=== PATIENT | female | born 1950 | race Caucasian/White ===

== ENCOUNTER 2016-11-05 18:22 | Emergency (ER) | payer BC ==
[~2016-11-05] VITALS: Ht 157.5 cm; Wt 127.6 kg
[~2016-11-05 18:22] MED LIST: CALCIUM PO; CATAPRES0.1 MG PO; CELEXA40 MG PO; COZAAR100 MG PO; Calan SR,Covera HS,I PO; Catapres PO; Cozaar PO; FUROSEMIDE20 MG PO; LEVOTHROID175 MCG PO; Lasix PO; Levothroid,Synthroid PO; MICRO-K10 ME1 PO; Micro-K,K-Tab,K-Dur, PO; NABUMETONE750 MG PO; VERAPAMIL HCL240 MG PO; celeXA PO
[2016-11-05 18:45] LABS: HEMATOCRIT 39.2 % (36.0-46.0); MCH 28.8 PG (29.0-34.0); MCHC 31.6 G/DL (30.0-36.0); MEAN PLAT.VOLUME 8.7 uM^3 (9.5-12.4); PLATELET COUNT 308 K/uL (156-360); RBC DIS.WIDTH-CV 14.3 % (11.8-14.6); RBC DIS.WIDTH-SD 46.5 % (39-53); RED BLOOD COUNT 4.31 M/uL (3.80-5.20); WHITE BLOOD COUNT 12.3 K/uL (4.1-10.2)
[2016-11-05 18:53] LABS: CHLORIDE 106 mEq/L (99-109); SODIUM 144 mEq/L (136-147)
[2016-11-05 18:55] LABS: GLUCOSE 132 mg/dL (70-99)
[2016-11-05 18:57] LABS: ANION GAP 12 MEQ/L (2-14)
[2016-11-05 18:59] LABS: GFR ESTIMATE (CALCULATED) > 59 mL/min/
[2016-11-05 19:00] LABS: UREA NITROGEN (BUN) 24 mg/dL (9-23)
[2016-11-05 19:06] LABS: TROP-I INTERPRETATION NEGATIVE; TROPONIN-I < 0.01 ng/mL (0.0-0.30)
[2016-11-05] MEDS ORDERED: LEVAQUIN750 MG PO (20:04)
[2016-11-05] MEDS ORDERED: PROVENTIL HFA6.7 GM IH (20:04)
[2016-11-05] MEDS ORDERED: PREDNISONE20 MG PO (20:04)
[2016-11-05 20:35] VITALS: BP 120/56
== END 2016-11-05 20:36 | disposition home or self-care (01) ==
LOC: EME 18:22
DX: J44.0 Chronic obstructive pulmonary disease with (acute) lower respiratory infection (principal); J20.9 Acute bronchitis, unspecified; J44.1 Chronic obstructive pulmonary disease with (acute) exacerbation; I10 Essential (primary) hypertension
CPT/HCPCS: 71020; 80048; 84484; 85027; 93005; 94640; 99281; 99284; J7512

== ENCOUNTER 2017-01-03 12:53 | Observation (INO) | payer BC ==
[~2017-01-03] VITALS: Ht 152.4 cm; Wt 130.1 kg
[~2017-01-03 12:53] MED LIST changes: +CITALOPRAM HBR40 MG PO; +CLONIDINE HCL0.1 MG PO; +KLOR-CON 1010 ME1 PO; +LEVAQUIN750 MG PO; +LEVOTHYROXINE175 MCG PO; +LOSARTAN POTAS100 MG PO; +PREDNISONE20 MG PO; +PROAIR HFA8.5 GM IH; +PROVENTIL HFA6.7 GM IH
[2017-01-03] MEDS ORDERED: FUROSEMIDE20 MG PO (13:51)
[2017-01-03 18:20] VITALS: BP 141/67
[2017-01-03 19:30] VITALS: BP 159/73
[2017-01-03 23:33] VITALS: BP 138/64
[2017-01-04 03:59] VITALS: BP 182/79
[2017-01-04 05:56] LABS: EOSINOPHIL (%) 7.4 % (0-5); EOSINOPHIL COUNT 0.7 K/uL (0-0.3); IMMATURE GRANULOCYTE (%) 0.4 % (0.0-0.7); INSTRUMENT ABS NEUTROPHIL CT 6.2 K/uL; LYMPHOCYTE COUNT 1.7 K/uL (1.0-2.8); MCH 28.3 PG (29.0-34.0); MCV 94.3 FL (83-99); MEAN PLAT.VOLUME 9.3 uM^3 (9.5-12.4); MONOCYTE (%) 7.6 % (3-12); MONOCYTE COUNT 0.7 K/uL (0-0.8); NEUTROPHIL (%) 66.5 % (45-76); NEUTROPHIL COUNT 6.2 K/uL (1.8-6.4); PLATELET COUNT 245 K/uL (156-360); RBC DIS.WIDTH-CV 14.5 % (11.8-14.6); RBC DIS.WIDTH-SD 50.3 % (39-53); RED BLOOD COUNT 4.03 M/uL (3.80-5.20); WHITE BLOOD COUNT 9.4 K/uL (4.1-10.2)
[2017-01-04 06:21] LABS: ANION GAP 9 MEQ/L (2-14); CHLORIDE 105 MEQ/L (99-109); GFR ESTIMATE (CALCULATED) > 59 mL/min/; GLUCOSE 128 mg/dL (70-99); SAMPLE HEMOLYSIS CHECK 0; SAMPLE ICTERIC CHECK 0; SAMPLE LIPEMIA CHECK 0; SODIUM 142 MEQ/L (136-147); UREA NITROGEN (BUN) 20 mg/dL (9-23)
[2017-01-04 07:50] VITALS: BP 165/72
[2017-01-04] MEDS ORDERED: ASPIR-LOW81 MG PO (09:59)
[2017-01-04] MEDS ORDERED: CLOPIDOGREL75 MG PO (09:59)
[2017-01-04] MEDS ORDERED: ATORVASTATIN CA40 MG PO (09:59)
== END 2017-01-04 13:59 | disposition home or self-care (01) ==
LOC: CATH 12:53 → 4EAST 15:52 → 2SOUTH 15:52 → 4EAST 17:43
PROVIDERS: Internal Medicine Cardiovascular Disease
PROC: B2111ZZ Fluoroscopy of Multiple Coronary Arteries using Low Osmolar Contrast (ICD-10-PCS; principal; 2017-01-03)
PROC: B2151ZZ Fluoroscopy of Left Heart using Low Osmolar Contrast (ICD-10-PCS; principal; 2017-01-03)
PROC: 4A023N7 Measurement of Cardiac Sampling and Pressure, Left Heart, Percutaneous Approach (ICD-10-PCS; principal; 2017-01-03)
PROC: 3E033PZ Introduction of Platelet Inhibitor into Peripheral Vein, Percutaneous Approach (ICD-10-PCS; principal; 2017-01-03)
PROC: 027034Z Dilation of Coronary Artery, One Artery with Drug-eluting Intraluminal Device, Percutaneous Approach (ICD-10-PCS; principal; 2017-01-03)
DX: I25.10 Atherosclerotic heart disease of native coronary artery without angina pectoris (principal); I10 Essential (primary) hypertension; E78.5 Hyperlipidemia, unspecified; E66.01 Morbid (severe) obesity due to excess calories; Z68.43 Body mass index [BMI] 50.0-59.9, adult
CPT/HCPCS: 36415; 80048; 85025; 85610; 85730; 93005; C1725; C1769; C1874; C1887; G0378; J1644; J2250; J3010; J3246

== ENCOUNTER 2017-01-30 07:01 | Emergency (ER) | payer BC ==
[~2017-01-30] VITALS: Ht 152.4 cm; Wt 128.0 kg
[~2017-01-30 07:01] MED LIST changes: +ASPIR-LOW81 MG PO; +ATORVASTATIN CA40 MG PO; +CLOPIDOGREL75 MG PO
[2017-01-30] MEDS ORDERED: PERCOCET 5/31 TABLET PO (09:10)
[2017-01-30 10:19] VITALS: BP 144/75
== END 2017-01-30 10:20 | disposition home or self-care (01) ==
LOC: EME 07:01
DX: S83.91XA Sprain of unspecified site of right knee, initial encounter (principal); X58.XXXA Exposure to other specified factors, initial encounter; M13.861 Other specified arthritis, right knee
CPT/HCPCS: 73564; 99281; 99284